=== PATIENT | female | born 1995 | race Caucasian/White ===

== ENCOUNTER 2016-12-26 01:43 | Emergency (ER) | payer OTHER ==
[~2016-12-26 01:43] MED LIST: BIRTHCONTROL PO; IBUP-988 PO; PRED50 PO
[2016-12-26 03:38] VITALS: BP 105/57; PULSE 84; RESP 16; O2SAT 100
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
== END 2016-12-26 05:01 | disposition home or self-care (01) ==
LOC: PHED 01:43
DX: S06.0X0A Concussion without loss of consciousness, initial encounter (principal); S00.03XA Contusion of scalp, initial encounter; W22.8XXA Striking against or struck by other objects, initial encounter
CPT/HCPCS: 70450